=== PATIENT | male | born 1960 | race Asian ===

== ENCOUNTER 2018-05-27 20:54 | Emergency (ER) | payer BC ==
[2018-05-27] MEDS ORDERED: diphenhydrAMINE 25 MG CAP ONE (21:09)
[2018-05-27] MEDS ORDERED: diphenhydrAMINE 50 MG/ML VIAL ONE (21:24)
[2018-05-27] MEDS ORDERED: Famotidine/PF 20 mg/2ml Vial ONE (21:24)
== END 2018-05-27 22:58 | disposition home or self-care (01) ==
LOC: SCSER 20:54
DX: T78.40XA Allergy, unspecified, initial encounter (principal); K58.9 Irritable bowel syndrome, unspecified; F32.9 Major depressive disorder, single episode, unspecified
CPT/HCPCS: 36416; 96374; 96375; J1200; S0028